=== PATIENT | male | born 1965 | race Caucasian/White ===

== ENCOUNTER 2017-07-19 09:16 | Emergency (ER) | payer OTHER ==
[~2017-07-19] VITALS: Ht 175.3 cm; Wt 88.5 kg
[~2017-07-19 09:16] MED LIST: CYCLOBENZAPRINE10 M1 PO; IBUPROFEN800 M1 PO; LEVOTHYROXINE137 MCG PO; MEDROL4 M2 PO; MONTELUKAST SOD10 M1 PO; OMEPRAZOLE20 M2 PO
[2017-07-19 09:20] VITALS: BP 150/90
--- NOTE | 2017-07-19 09:26 | ED INFLUENZA/URI COMPLAINT ---
History of Present Illness General Chief Complaint: Upper Respiratory Sx/Fever Stated Complaint: FEVER XS 3 DAYS COUGH Source: patient, family Exam Limitations: no limitations Vital Signs & Intake/Output Vital Signs & Intake/Output Vital Signs Date Time Temp Pulse Resp B/P B/P Pulse O2 O2 Flow FiO2 Mean Ox Delivery Rate 07/19 0920 98.4 116 16 150/90 98 Room Air Allergies Coded Allergies: NO KNOWN ALLERGIES (10/23/11) Reconcile Medications Albuterol Sulfate 2.5 MG/3 ML (0.083 %) VIAL.NEB 1 Vial INH/RAMIREZ Q4P PRN DYSPNEA Cyclobenzaprine HCl 10 MG TABLET 1 TAB PO TID PRN pain Ibuprofen 800 MG TABLET 1 TAB PO TID PRN pain Levothyroxine Sodium 137 MCG TABLET 1 TAB PO QPM THYROID (Reported) Methylprednisolone. (Medrol) 4 MG TAB.DS.PK 1 DP PO AD back pain 6 on day 1 then reduce by one tablet daily until gone Methylprednisolone. (Medrol) 4 MG TAB.DS.PK 1 DP PO AD INFLAMMATION 6 on day 1 then reduce by one tablet daily until gone Montelukast Sodium 10 MG TABLET 1 TAB PO QPM ACID REFLUX (Reported) Omeprazole 20 MG CAPSULE. 1 CAP PO QPM ACID REFLUX (Reported) Triage Note: PT STATES THAT HE HAS HAD A COUGH WAS STARTED ON ZPACK YESTERDAY WOKE THIS AM AND COUGH IS PRODUCTIVE OF YELLOW SPUTUM, PT STATES THAT Z-PACK DOES NOT WORK FOR HIM , FEELS COUGH IS WORSE Triage Nurses Notes Reviewed? yes Onset: Abrupt Duration: day(s): (2) Timing: multiple episodes today Severity: mild, moderate No Modifying Factors: none HPI: This is a 51-year-old male presents to ER with his for chief complaint of cough and congestion. He saw his primary care doctor on and started azithromycin yesterday. He states last night he felt like he couldn't breathe. This morning he coughed up a lot of thick yellow sputum and now feels better. He states that he doesn't think the Zithromax is going to work for him. Patient has only had 1 day of azithromycin so far. No recent sick contacts or travel. He is not immune compromised. Patient is not a smoker. Past History Travel History Traveled to [place] past 21 day No Medical History Any Pertinent Medical History? see below for history Neurological: NONE EENT: NONE Cardiovascular: NONE Respiratory: NONE Gastrointestinal: GERD Hepatic: NONE Renal: NONE Musculoskeletal: NONE Psychiatric: NONE Endocrine: hypothyroidism Blood Disorders: NONE Cancer(s): NONE RN CARDIOVASCULAR ICU/Reproductive: NONE Surgical History Surgical History: none Psychosocial History What is your primary language [place] Island[place] Tobacco Use: Never used ETOH Use: denies use Illicit Drug Use: denies illicit drug use Family History Hx Contributory? No Review of Systems Review of Systems Constitutional: Denies: chills, fever. EENTM: Reports: no symptoms. Respiratory: Reports: cough, short of breath, sputum production. Cardiovascular: Denies: chest pain. GI: Denies: abdominal pain, nausea, vomiting. Genitourinary: Denies: discharge, dysuria, frequency, hematuria. Musculoskeletal: Denies: back pain. Skin: Reports: no symptoms. Neurological/Psychological: Reports: no symptoms. Hematologic/Endocrine: Denies: bruising, bleeding, polyuria, polydipsia. Immunologic/Allergic: Denies: splenectomy. All Other Systems: Reviewed and Negative Physical Exam Physical Exam General Appearance: well developed/nourished, alert, awake Head: atraumatic, normal appearance Eyes: Bilateral: normal appearance, PERRL, EOMI. Ears, Nose, Throat: normal ENT inspection, moist mucous membrane, hearing grossly normal Neck: normal inspection, supple, full range of motion Respiratory: normal breath sounds, chest non-tender, no respiratory distress Cardiovascular: regular rate/rhythm, normal peripheral pulses Peripheral Pulses: 2+ radial (R), 2+ radial (L) Gastrointestinal: normal bowel sounds, soft, non-tender Extremities: normal inspection, normal capillary refill, normal range of motion, no edema Skin: intact, normal color, warm/dry Core Measures Sepsis Present: No Sepsis Focused Exam Completed? No Progress Differential Diagnosis: influenza, pneumonia, BRONCHITIS Plan of Care: Orders Procedure Date/time Status XRY-CHEST XRAY, PA AND LATERAL 07/19 923 Active Current Medications Sig/Jose Martin Start time Last Medication Dose Stop Time Status Admin Prednisone 60 MG ONCE ONE 07/19 945 UNVr 07/1947 0947 Diagnostic Imaging: Viewed by Me: Radiology Read. Discussed w/RAD: Radiology Read. CXR Impression: PATIENT: MIRTHA GILL PRESENT AGE: 51 PATIENT ACCOUNT NO: [id number] : 63 LOCATION: [facility] ORDERING PHYSICIAN: Dexter Vazquez DO SERVICE DATE: 07/19/17 EXAM TYPE: RAD - XRY-CHEST XRAY, PA AND LATERAL EXAMINATION: XR CHEST CLINICAL INFORMATION: Cough COMPARISON: Multiple priors, most recent from 09/07/2013. TECHNIQUE: 2 views of the chest were obtained. FINDINGS: The cardiomediastinal silhouette is within normal limits. The lungs are clear. No pleural effusion or pneumothorax. No acute osseous abnormality. IMPRESSION: No evidence of acute pulmonary disease. DICTATED BY: Charlette Aguila MD DATE/TIME DICTATED:07/19/171020 TEMPLATE CLERK:MAIKEL DATE/TIME TRANSCRIBED:07/19/171020 CONFIDENTIAL, DO NOT COPY WITHOUT APPROPRIATE AUTHORIZATION. <Electronically signed in Other Vendor System> SIGNED BY: Charlette Aguila MD 07/19/17 1028 Initial ED EKG: none Departure Departure Time of Disposition: 1030 Disposition: HOME OR SELF CARE Condition: Stable Clinical Impression Primary Impression: Bronchitis Referrals: Morelia COTTER,Berta Khan (PCP/Family) Additional Instructions: USE THE ALBUTEROL AND TAKE THE PREDNISONE DIRECTED CONTINUE THE AZITHROMYCIN FOLLOW UP WITH YOUR DOCTOR NEXT WEEK RETURN TO THE ER FOR ANY CHANGING OR WORSENING SYMPTOMS Departure Forms: Customer Survey General Discharge Information Prescriptions: Current Visit Scripts Albuterol Sulfate 1 Vial INH/RAMIREZ Q4P PRN DYSPNEA #1 BOX Methylprednisolone. (Medrol) 1 DP PO AD #1 DP 6 on day 1 then reduce by one tablet daily until gone
--- NOTE | 2017-07-19 10:28 | RADIOLOGY REPORT ---
EXAMINATION: XR CHEST CLINICAL INFORMATION: Cough COMPARISON: Multiple priors, most recent from 09/07/2013. TECHNIQUE: 2 views of the chest were obtained. FINDINGS: The cardiomediastinal silhouette is within normal limits. The lungs are clear. No pleural effusion or pneumothorax. No acute osseous abnormality. IMPRESSION: No evidence of acute pulmonary disease.
[2017-07-19] MEDS ORDERED: MEDROL4 M2 PO (10:32)
[2017-07-19] MEDS ORDERED: ALBUTEROL2.5 MG/3 M INH/SOL (10:32)
== END 2017-07-19 10:39 ==
LOC: ERH 09:16
DX: J40 Bronchitis, not specified as acute or chronic (principal)